=== PATIENT | female | born 1960 | race Caucasian/White ===

== ENCOUNTER → 2017-12-08 | Outpatient (CLI) | payer BC | LOC: MRI 09:36 | DX: M75.101 Unspecified rotator cuff tear or rupture of right shoulder, not specified as traumatic (principal); M19.011 Primary osteoarthritis, right shoulder; M25.411 Effusion, right shoulder ==

== ENCOUNTER → 2018-01-18 | Outpatient (CLI) | payer BC | LOC: RAD 01:08 | DX: Z12.31 Encounter for screening mammogram for malignant neoplasm of breast (principal) ==

== ENCOUNTER → 2019-03-06 | Outpatient (CLI) | payer BC, OTHER ==
[~2019-03-06] MED LIST: ASPIR 8181 MG PO; ESTRADIOL1 EAC7; METFORMIN HCL500 MG PO; PRAVACHOL40 MG PO; SYNTHROID75 MCG PO
== END ==
LOC: RAD 11:11
DX: Z12.31 Encounter for screening mammogram for malignant neoplasm of breast (principal)

== ENCOUNTER → 2020-03-31 | Outpatient (CLI) | payer BC, OTHER | LOC: BC 08:57 | PROVIDERS: ATTEND Family Medicine | DX: Z12.31 Encounter for screening mammogram for malignant neoplasm of breast (principal) ==